=== PATIENT | male | born 1955 | race Caucasian/White ===

== ENCOUNTER 2016-08-16 14:01 | Emergency (ER) | payer BC ==
--- NOTE | 2016-08-16 14:31 | EDM.PDOC ---
ED HPI Trauma - General Chief Complaint: Lower Extremity Injury/Pain Stated Complaint: LEFT KNEE PAIN Time Seen by Provider: 08/16/16 14:23 - History of Present Illness INITIAL COMMENTS - FREE TEXT/NARRATIVE: HISTORY AND PHYSICAL: History of present illness: The patient is a 61-year-old male who has a long standing history with orthopedic clinic and Dr. Woods for having me effusions and needing arthrocentesis and presents with similar today. The patient says he was working and kneeled down on his knee and suddenly his knee had diffuse swelling similar to his other presentations. He did not fall and the leg and has no neurosensory changes and only has pain due to the swelling. He has no systemic complaints of fever chills nausea vomiting or abdominal pain And has no calf tenderness. Review of systems: As per history of present illness and below otherwise all systems reviewed and negative. Past medical history: As per history of present illness and as reviewed below otherwise noncontributory. Surgical history: As per history of present illness and as reviewed below otherwise noncontributory. Social history: No reported history of drug or alcohol abuse. Family history: As per history of present illness and as reviewed below otherwise noncontributory. Physical exam: General: Well-developed well-nourished male who is nontoxic and vital signs have been reviewed by me. HEENT: Atraumatic, normocephalic, negative for conjunctival pallor or scleral icterus, mucous membranes moist, throat clear, neck supple, nontender, trachea midline. Lungs: Clear to auscultation, breath sounds equal bilaterally, chest nontender. Heart: S1S2, regular rate and rhythm no overt murmurs Abdomen: Soft, nondistended, nontender. NABS Genitourinary: Deferred. Rectal: Deferred. Extremities: Atraumatic, no palpable bony defects are appreciated and patient has full range of motion of all extremities. At the left knee there is a large suprapatellar effusion which is ballotable and not warm and there is no evidence of any bony defects deformities or bony tenderness appreciated. The legs are negative for cords or calf pain. Neurovascular unremarkable. Neuro: Awake, alert, oriented. Cranial nerves II through XII unremarkable. Cerebellum unremarkable. Motor and sensory unremarkable throughout. Exam nonfocal. Diagnostics: [] Therapeutics: This case was discussed with Dr. Paula Woods at 1432. She is aware of this patient and has tapped this knee before and says that it's likely going to be a hemarthrosis. She does not want any of the fluid sent off for study does not want a x-ray performed prior to this. Patient and are comfortable with procedure. The patient again insists that he did not have any trauma to the area Procedure note: After the procedure was explained to the patient the area was prepped and draped in sterile fashion using Betadine and sterile drapes. 1% lidocaine with epinephrine was infused in the skin and the subcutaneous tissue at the lateral aspect of the suprapatellar area with approximately 2.5 cc. Using an 18-gauge needle the effusion was tapped and 40 cc of blood was extracted. There were no complications and the patient tolerated the procedure well. A pressure dressing was applied with gauze and Kee and the patient has his own crutches to go home with. I've advised him to not weight-bear and leave the pressure dressing on until this evening and apply ice as needed. Impression: Left knee hemarthrosis with history of same, history of arthritic knee improved Definitive disposition and diagnosis as appropriate pending reevaluation and review of above. Allergies/ADRs: Allergies No Known Allergies Allergy (Verified 08/16/16 14:09) Home Medications: Ambulatory Orders Calcium Carbonate [Calcium] 500 mg PO DAILY 12/21/13 [Confirmed 08/16/16] Glucosamine/D3/Boswellia Anna [Osteo Bi-Flex Caplet] 1 each PO DAILY 12/21/13 [ Confirmed 08/16/16] Multivitamin [Multi-Vitamin Daily] 1 each PO DAILY 12/21/13 [Confirmed 08/16/16] Omeprazole 20 mg PO DAILY 12/21/13 [Confirmed 08/16/16] atorvaSTATin [Lipitor] 20 mg PO BEDTIME 05/23/15 [Confirmed 08/16/16] Diltiazem [Cardizem CD] 120 mg PO DAILY #30 cap.cd 05/24/15 [Confirmed 08/16/16] Sotalol HCl [Sotalol] 240 mg PO BID 05/18/16 [Confirmed 08/16/16] Ubidecarenone [Co Q10] 100 mg PO DAILY 05/18/16 [Confirmed 08/16/16] Past Medical History HEENT History: Reports: Impaired vision Other HEENT History: glasses Cardiovascular History: Reports: Afib, High cholesterol Other Cardiovascular History: irregular heartbeat, palpitations Respiratory History: Reports: Asthma Gastrointestinal History: Reports: Hiatal hernia Other Gastrointestinal History: Pancreatitis in mid Genitourinary History: Reports: None Musculoskeletal History: Reports: None Neurological History: Reports: None Psychiatric History: Reports: None Endocrine/Metabolic History: Reports: None Hematologic History: Reports: None Oncologic (Cancer) History: Reports: None Dermatologic History: Reports: None - Infectious Disease History Infectious Disease History: Reports: Chicken pox - Past Surgical History Head Surgeries/Procedures: Reports: None GI Surgical History: Reports: Hernia repair/other Musculoskeletal Surgical History: Reports: Other (see below) Other Musculoskeletal Surgeries/Procedures:: left knee surgery Social & Family History - Family History Family Medical History: Noncontributory Cardiac: Reports: [place], Other (see below) Other Cardiac Family History: heat disease Endocrine/Metabolic: Reports: Diabetes, type II Oncologic: Reports: Ovarian - Tobacco Use Smoking Status *Q: Never Smoker Second Hand Smoke Exposure: No - Caffeine Use Caffeine Use: Reports: None - Alcohol Use Days Per Week of Alcohol Use: 1 Number of Drinks Per Day: 5 Total Drinks Per Week: 5 - Recreational Drug Use Recreational Drug Use: No Review of Systems - Review of Systems Review Of Systems: ROS reveals no pertinent complaints other than HPI. Trauma Exam - Physical Exam Exam: See Below (See dictation) Course - Vital Signs Last Recorded V/S: Last Vital Signs Temp 36.5 C 08/16/16 14:16 Pulse 63 08/16/16 14:16 Resp 18 08/16/16 14:16 BP 127/77 08/16/16 14:16 Pulse Ox 95 08/16/16 14:16 - Orders/Labs/Meds Meds: Medications Discontinued Medications Generic Name Dose Route Start Last Admin Trade Name Freq PRN Reason Stop Dose Admin Lidocaine/Epinephrine 20 ml 08/16/16 14:36 Xylocaine 1% With Epinephrine 1:100,000 INJECT 08/16/16 14:37 ONETIME ONE Departure - Departure Time of Disposition: 15:03 Disposition: Home, Self-Care 01 Condition: good Clinical Impression: Hemarthrosis involving knee joint Qualifiers: Laterality: left Qualified Code(s): M25.062 - Hemarthrosis, left knee Forms: ED Department Discharge Additional Instructions: The following information is given to patients seen in the emergency department who are being discharged to home. This information is to outline your options for follow-up care. We provide all patients seen in our emergency department with a follow-up referral. The need for follow-up, as well as the timing and circumstances, are variable depending upon the specifics of your emergency department visit. If you don't have a primary care physician on staff, we will provide you with a referral. We always advise you to contact your personal physician following an emergency department visit to inform them of the circumstance of the visit and for follow-up with them and/or the need for any referrals to a consulting specialist. The emergency department will also refer you to a specialist when appropriate. This referral assures that you have the opportunity for followup care with a specialist. All of these measure are taken in an effort to provide you with optimal care, which includes your followup. Under all circumstances we always encourage you to contact your private physician who remains a resource for coordinating your care. When calling for followup care, please make the office aware that this follow-up is from your recent emergency room visit. If for any reason you are refused follow-up, please contact the [facility] emergency department at and ask to speak to the emergency department charge nurse. [facility] Specialty Care--Orthopedic clinic Professional Building [address] [place] [id number] [facility] Primary care- Internal Medicine and Family [place] [id number] [place] [id number] Please leave KEE and dressing on until this evening and elevate and ice the area. Do not weight-bear until this evening. After you remove the Kee and dressing you can replace the Kee at any time that you need to be up and about for support. Please call and followup with Dr. Woods in the clinic as well as her primary care. Return to ER as needed and as discussed
[2016-08-16] MEDS ORDERED: Lidocaine 1% with EPINEPHrine 1:100,000 20 ML MDV INJECT ONE (14:36)
[2016-08-16 15:22] VITALS: BP 114/75
== END 2016-08-16 15:15 | disposition home or self-care (01) ==
LOC: MW.ED 14:01
DX: M25.062 Hemarthrosis, left knee (principal); E78.00 Pure hypercholesterolemia, unspecified; J45.909 Unspecified asthma, uncomplicated; Z98.890 Other specified postprocedural states; Z79.899 Other long term (current) drug therapy
CPT/HCPCS: 20610; 99282; 99283

== ENCOUNTER → 2016-08-20 | Outpatient (CLI) | payer BC ==
--- NOTE | 2016-08-20 16:15 | CR ---
EXAMINATION: Left knee HISTORY: Osteoarthritis COMPARISON: 05/28/2016 TECHNIQUE: 3 views FINDINGS/IMPRESSION: There is no acute osseous abnormality, dislocation, or fracture identified. The re is a small subchondral cyst within the medial tibial plateau. Bone mineralization otherwise appea rs normal. There is however a small suprapatellar joint effusion.
== END ==
LOC: MW.CHORTHO 13:18
PROVIDERS: ATTEND Orthopaedic Surgery
DX: M17.12 Unilateral primary osteoarthritis, left knee (principal); M25.562 Pain in left knee; M25.462 Effusion, left knee
CPT/HCPCS: 36415; 73562-26-LT; 73562-LT; 85025; 85610; 85730

== ENCOUNTER → 2016-08-23 | Outpatient (CLI) | payer BC | LOC: MW.CHORTHO 08:15 | PROVIDERS: ATTEND Orthopaedic Surgery | DX: M17.12 Unilateral primary osteoarthritis, left knee (principal) | CPT/HCPCS: 36415; 85240; 85245; 85300 ==

== ENCOUNTER 2016-11-16 19:36 | Emergency (ER) | payer BC ==
[2016-11-16] MEDS ORDERED: Acetaminophen 500 MG Tab PO ONE (20:32)
--- NOTE | 2016-11-16 21:25 | EDM.PDOC ---
ED HPI GENERAL MEDICAL PROBLEM - General Chief Complaint: Lower Extremity Injury/Pain Stated Complaint: UNK Time Seen by Provider: 11/16/16 20:30 Source of Information: Reports: Patient History Limitations: Reports: No Limitations - History of Present Illness INITIAL COMMENTS - FREE TEXT/NARRATIVE: HISTORY AND PHYSICAL: History of present illness: [Patient comes emergency room complaining of left knee pain and swelling. 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 He follows regularly with Dr. Paula Woods for aspiration. Was last aspirated in her clinic last week. Over the last couple of hours his knee has become more swollen and more painful. He states that it feels warm to touch but has not noticed any erythema. No fever or chills. No muscle or joint aches or pains. He is otherwise feeling well. He is on request for atrial fibrillation. He is scheduled for a ablation procedure on Friday, November 18.] Review of systems: As per history of present illness and below otherwise all systems reviewed and negative. Past medical history: As per history of present illness and as reviewed below otherwise noncontributory. Surgical history: As per history of present illness and as reviewed below otherwise noncontributory. Social history: No reported history of drug or alcohol abuse. Family history: As per history of present illness and as reviewed below otherwise noncontributory. Physical exam: HEENT: Atraumatic, normocephalic. Extremities: Left knee is swollen and tender w/ palpation. No erythema is appreciated. Negative for cords or calf pain. Neurovascular unremarkable. Impression: [Left knee hemarthrosis] Plan: [Consult to Dr. Paula Woods who sees patient in ER for evaluation. Disposition and discharge instructions per orthopedist recommendations. ] Definitive disposition and diagnosis as appropriate pending reevaluation and review of above. left knee Pain Score (Numeric/FACES): 10 - Related Data Allergies Allergy/AdvReac Type Severity Reaction Status Date / Time No Known Allergies Allergy Verified 11/16/16 20:04 Home Meds: Home Meds Calcium Carbonate [Calcium] 500 mg PO DAILY 12/21/13 [History] Glucosamine/D3/Boswellia Anna [Osteo Bi-Flex Caplet] 1 each PO DAILY 12/21/13 [ History] Multivitamin [Multi-Vitamin Daily] 1 each PO DAILY 12/21/13 [History] Omeprazole 20 mg PO DAILY 12/21/13 [History] atorvaSTATin [Lipitor] 20 mg PO BEDTIME 05/23/15 [History] Sotalol HCl [Sotalol] 240 mg PO BID 05/18/16 [History] Ubidecarenone [Co Q10] 100 mg PO DAILY 05/18/16 [History] Apixaban [Eliquis] 5 mg PO BID 11/16/16 [History] Past Medical History HEENT History: Reports: Impaired Vision Other HEENT History: glasses Cardiovascular History: Reports: Afib, High Cholesterol Other Cardiovascular History: irregular heartbeat, palpitations Respiratory History: Reports: Asthma Gastrointestinal History: Reports: Hiatal Hernia Other Gastrointestinal History: Pancreatitis in mid Genitourinary History: Reports: None Musculoskeletal History: Reports: None Neurological History: Reports: None Psychiatric History: Reports: None Endocrine/Metabolic History: Reports: None Hematologic History: Reports: None Oncologic (Cancer) History: Reports: None Dermatologic History: Reports: None - Infectious Disease History Infectious Disease History: Reports: Chicken Pox - Past Surgical History Head Surgeries/Procedures: Reports: None GI Surgical History: Reports: Hernia Repair/Other Musculoskeletal Surgical History: Reports: Other (See Below) Social & Family History - Family History Family Medical History: Noncontributory Cardiac: Reports: [place], Other (See Below) Other Cardiac Family History: heat disease Endocrine/Metabolic: Reports: Diabetes, type II Oncologic: Reports: Ovarian - Tobacco Use Smoking Status *Q: Never Smoker Second Hand Smoke Exposure: No - Caffeine Use Caffeine Use: Reports: None - Alcohol Use Days Per Week of Alcohol Use: 1 Number of Drinks Per Day: 5 Total Drinks Per Week: 5 - Recreational Drug Use Recreational Drug Use: No Review of Systems - Review of Systems Review Of Systems: ROS reveals no pertinent complaints other than HPI. ED EXAM, GENERAL - Physical Exam Exam: See Below Course - Vital Signs Last Recorded V/S: Last Vital Signs Temp Pulse 56 L 11/16/16 21:15 Resp 16 11/16/16 21:15 BP 119/82 11/16/16 21:15 Pulse Ox 96 11/16/16 21:15 - Orders/Labs/Meds Meds: Medications Discontinued Medications Generic Name Dose Route Start Last Admin Trade Name Freq PRN Reason Stop Dose Admin Acetaminophen 1,000 mg 11/16/16 20:32 11/16/16 20:39 Tylenol Extra Strength PO 11/16/16 20:33 1,000 mg ONETIME ONE Administration Departure - Departure Time of Disposition: 21:30 Disposition: Home, Self-Care 01 Condition: Good Clinical Impression: Hemarthrosis involving knee joint - Discharge Information Instructions: Knee Pain, [id number] Referrals: Rony Woods MD [Primary Care Provider] - Forms: ED Department Discharge Additional Instructions: The following information is given to patients seen in the emergency department who are being discharged to home. This information is to outline your options for follow-up care. We provide all patients seen in our emergency department with a follow-up referral. The need for follow-up, as well as the timing and circumstances, are variable depending upon the specifics of your emergency department visit. If you don't have a primary care physician on staff, we will provide you with a referral. We always advise you to contact your personal physician following an emergency department visit to inform them of the circumstance of the visit and for follow-up with them and/or the need for any referrals to a consulting specialist. The emergency department will also refer you to a specialist when appropriate. This referral assures that you have the opportunity for follow-up care with a specialist. All of these measure are taken in an effort to provide you with optimal care, which includes your follow-up. Under all circumstances we always encourage you to contact your private physician who remains a resource for coordinating your care. When calling for follow-up care, please make the office aware that this follow-up is from your recent emergency room visit. If for any reason you are refused follow-up, please contact the [facility] emergency department at and asked to speak to the emergency department charge nurse. [facility] Specialty care-Orthopedic Clinic Professional Building [address] [place] [address], [address] [place] [address] Discharge instructions per orthopedist.
--- NOTE | 2016-11-16 21:44 | PCM.CONS ---
H&P History of Present Illness - General Date of Service: 11/16/16 Source of Information: Patient, Family History Limitations: Reports: No Limitations - History of Present Illness Initial Comments - Free Text/Narative: 61 y/o male with h/o recurrent left knee hemarthrosis. One week ago noticed increased swelling. Was able to tolerate pain and swelling while using one crutch for assistance with ambulation. Today began having increased swelling. No injury or new activity. Currently on Eloquis for a heart condition and is scheduled for heart ablation in [place] on Friday. Pain has persisted, so presented to ER. Extensive w/u in past as documented in clinical record. No evidence of bleeding diathesis. Known DJD in knee. Denies paralysis, paresthesias. Improves with: Reports: Immobilization Worsens with: Reports: Movement Context: Denies: Activity/Exercise, Trauma Associated Symptoms: Reports: No Other Symptoms. Denies: Fever/Chills, Nausea/ Vomiting, Shortness of Breath left knee Pain Score (Numeric/FACES): 10 - Related Data Allergies/Adverse Reactions: Allergies Allergy/AdvReac Type Severity Reaction Status Date / Time No Known Allergies Allergy Verified 11/16/16 20:04 Home Medications: Home Meds Calcium Carbonate [Calcium] 500 mg PO DAILY 12/21/13 [History] Glucosamine/D3/Boswellia Anna [Osteo Bi-Flex Caplet] 1 each PO DAILY 12/21/13 [ History] Multivitamin [Multi-Vitamin Daily] 1 each PO DAILY 12/21/13 [History] Omeprazole 20 mg PO DAILY 12/21/13 [History] atorvaSTATin [Lipitor] 20 mg PO BEDTIME 05/23/15 [History] Sotalol HCl [Sotalol] 240 mg PO BID 05/18/16 [History] Ubidecarenone [Co Q10] 100 mg PO DAILY 05/18/16 [History] Apixaban [Eliquis] 5 mg PO BID 11/16/16 [History] Past Medical History HEENT History: Reports: Impaired Vision Other HEENT History: glasses Cardiovascular History: Reports: Afib, High Cholesterol Other Cardiovascular History: irregular heartbeat, palpitations Respiratory History: Reports: Asthma Gastrointestinal History: Reports: Hiatal Hernia Other Gastrointestinal History: Pancreatitis in mid Genitourinary History: Reports: None Musculoskeletal History: Reports: None Neurological History: Reports: None Psychiatric History: Reports: None Endocrine/Metabolic History: Reports: None Hematologic History: Reports: None Oncologic (Cancer) History: Reports: None Dermatologic History: Reports: None - Infectious Disease History Infectious Disease History: Reports: Chicken Pox - Past Surgical History Head Surgeries/Procedures: Reports: None GI Surgical History: Reports: Hernia Repair/Other Musculoskeletal Surgical History: Reports: Other (See Below) Social & Family History - Family History Family Medical History: Noncontributory Cardiac: Reports: [place], Other (See Below) Other Cardiac Family History: heat disease Endocrine/Metabolic: Reports: Diabetes, type II Oncologic: Reports: Ovarian - Tobacco Use Smoking Status *Q: Never Smoker Second Hand Smoke Exposure: No - Caffeine Use Caffeine Use: Reports: None - Alcohol Use Days Per Week of Alcohol Use: 1 Number of Drinks Per Day: 5 Total Drinks Per Week: 5 - Recreational Drug Use Recreational Drug Use: No H&P Review of Systems - Review of Systems: Review Of Systems: See Below General: Reports: No Symptoms. Denies: Fever, Chills HEENT: Reports: No Symptoms Pulmonary: Reports: No Symptoms Cardiovascular: Reports: No Symptoms Gastrointestinal: Reports: No Symptoms Genitourinary: Reports: No Symptoms Musculoskeletal: Reports: Joint Pain Neurological: Reports: No Symptoms Hematologic/Lymphatic: Reports: No Symptoms Immunologic: Reports: No Symptoms Exam - Exam Exam: See Below - Vital Signs Vital Signs: Last Vital Signs Temp Pulse 61 11/16/16 20:07 Resp 20 11/16/16 20:07 BP 162/101 H 11/16/16 20:07 Pulse Ox 97 11/16/16 20:07 Weight: 77.111 kg - Exam General: Alert, Oriented, 4 HEENT: Conjunctiva Clear, Hearing Intact, Nares Patent, Pupils Equal Neck: Supple, Trachea Midline, 2 Lungs: Normal Respiratory Effort Cardiovascular: Irregular Rhythm Abdomen: Soft (Male) Exam: Deferred Neuro Extensive - Mental Status: Alert, Oriented x3, Normal Mood/Affect, Normal Cognition Psychiatric: Alert, Normal Affect, Normal Mood Physical Exam Comments:: Exam of LLE shows obvious left knee effusion. No erythema or ecchymosis noted. No pain with hip ROM. Pain with any type of knee motion. No calf TTP. AT/EHL/ gastroc 5/5. Sensation intact. DP 2+. Consult PN Assessment/Plan Procedures: Procedures ANTITHROMBIN III ACTIVITY (08/23/16) ASSAY OF BLOOD/URIC ACID (05/18/16) ASSAY OF CK (CPK) (06/14/15) ASSAY OF MAGNESIUM (06/14/15) ASSAY OF TROPONIN QUANT (06/14/15) C-REACTIVE PROTEIN (05/18/16) CHEST X-RAY 1 VIEW FRONTAL (06/14/15) CLOT FACTOR VIII AHG 1 STAGE (08/23/16) CLOT FACTOR VIII VW RISTOCTN (08/23/16) COMPLETE CBC W/AUTO DIFF WBC (08/20/16) COMPREHEN METABOLIC PANEL (06/14/15) CREATINE MB FRACTION (06/14/15) DRAIN/INJ JOINT/BURSA W/O US (08/16/16) ELECTROCARDIOGRAM TRACING (06/26/15) EMERGENCY DEPT VISIT (08/16/16) EMERGENCY DEPT VISIT (06/14/15) EMERGENCY DEPT VISIT (12/21/13) EXTREMITY STUDY (12/30/13) HT MUSCLE IMAGE SPECT MULT (05/16/15) HYDRATE IV INFUSION ADD-ON (06/14/15) LIPID PANEL (05/23/15) METABOLIC PANEL TOTAL CA (05/23/15) PROTHROMBIN TIME (08/20/16) RBC SED RATE AUTOMATED (05/18/16) ROUTINE VENIPUNCTURE (08/20/16) THER/PROPH/DIAG INJ IV PUSH (06/14/15) THER/PROPH/DIAG INJ SC/IM (06/14/15) THROMBOPLASTIN TIME PARTIAL (08/20/16) TTE W/DOPPLER COMPLETE (05/23/15) TX/PRO/DX INJ NEW DRUG ADDON (06/14/15) TX/PRO/DX INJ SAME DRUG RECORD PRESSMAN (05/23/15) URINALYSIS AUTO W/SCOPE (06/14/15) X-RAY EXAM KNEE 4 OR MORE (05/28/16) X-RAY EXAM OF FINGER(S) (11/06/15) X-RAY EXAM OF KNEE 3 (08/20/16) (1) Hemarthrosis of left knee SNOMED Code(s): 463286710 Code(s): M25.062 - HEMARTHROSIS, LEFT KNEE Current Visit: No Problem List Initiated/Reviewed/Updated: Yes Plan: Due to the increased pain, I recommended aspiration of the left knee. He has had this in the past and is familiar with the procedure. With him being on Eloquis, there is a potential for recurrence of the hemarthrosis and he is aware of this. Risks of procedure discussed which include, but are not limited to, infection, recurrance, continued pain. Patient agrees to proceed. Verbal consent was obtained. Using sterile technique, an 18G needle was used to aspirate ~80ml of bloody fluid from the left knee joint via a supralateral retropatellar approach. Patient tolerated the procedure well. Improvement in pain was noted at completion of procedure. A compression dressing was then applied. Patient will be discharged home with [place] 5/325. He is instructed to f/u in ortho clinic once his cardiovascular work up is complete. Ice packs prn. Family and patient verbalize understanding.
[2016-11-16 22:14] VITALS: BP 119/82
== END 2016-11-16 21:15 | disposition home or self-care (01) ==
LOC: MW.ED 19:36
DX: M25.062 Hemarthrosis, left knee (principal); I48.91 Unspecified atrial fibrillation; E78.00 Pure hypercholesterolemia, unspecified; J45.909 Unspecified asthma, uncomplicated; Z79.899 Other long term (current) drug therapy
CPT/HCPCS: 99283; A9270

== ENCOUNTER 2017-09-04 08:09 | Emergency (ER) | payer BC ==
--- NOTE | 2017-09-04 09:01 | EDM.PDOC ---
ED HPI GENERAL MEDICAL PROBLEM - General Chief Complaint: Lower Extremity Injury/Pain Stated Complaint: RT LEG HURTS Time Seen by Provider: 09/04/17 08:51 - History of Present Illness INITIAL COMMENTS - FREE TEXT/NARRATIVE: HISTORY AND PHYSICAL: History of present illness: Patient 62-year-old white male with history of cardiac ablation and presents with Starbright calf pain he denies any injury is concerned about ruling out deep venous thrombosis he has no history of DVT or PE he denies any other concern is no fever chills nausea vomiting or other complaints and otherwise he has been in his usual state of health Review of systems: As per history of present illness and below otherwise all systems reviewed and negative. Past medical history: As per history of present illness and as reviewed below otherwise noncontributory. Surgical history: As per history of present illness and as reviewed below otherwise noncontributory. Social history: No reported history of drug or alcohol abuse. Family history: As per history of present illness and as reviewed below otherwise noncontributory. Physical exam: HEENT: Atraumatic, normocephalic, pupils reactive, negative for conjunctival pallor or scleral icterus, mucous membranes moist, throat clear, neck supple, nontender, trachea midline. Lungs: Clear to auscultation, breath sounds equal bilaterally, chest nontender. Heart: S1S2, regular, negative for clicks, rubs, or JVD. Abdomen: Soft, nondistended, nontender. Negative for masses or hepatosplenomegaly. Negative for costovertebral tenderness. Pelvis: Stable nontender. Genitourinary: Deferred. Rectal: Deferred. Extremities: Atraumatic, negative for cords tenderness to palpation of his right calf. Neurovascular unremarkable. Neuro: Awake, alert, oriented. Cranial nerves II through XII unremarkable. Cerebellum unremarkable. Motor and sensory unremarkable throughout. Exam nonfocal. Diagnostics: Venous Doppler right lower extremity Therapeutics: None Impression: #1 right calf pain rule out DVT Definitive disposition and diagnosis as appropriate pending reevaluation and review of above. right calf Pain Score (Numeric/FACES): 6 - Related Data Allergies Allergy/AdvReac Type Severity Reaction Status Date / Time No Known Allergies Allergy Verified 09/04/17 08:15 Home Meds: Home Meds Apixaban [Eliquis] 5 mg PO BID 09/04/17 [History] Calcium Carbonate/Vitamin D3 [Calcium 600 + Vit D 200] 1 each PO DAILY 09/04/17 [History] Gluc HCl/Csa/Raymond Hy/Hyalur Ac [Glucosamine Chondroitin] 2 tab PO DAILY [History] Multivitamins [Tab-A-Alberto] 1 each PO DAILY 09/04/17 [History] Omeprazole 20 mg PO DAILY 09/04/17 [History] Sotalol [Betapace] 120 mg PO BID 09/04/17 [History] Ubidecarenone [Co Q-10] 100 mg PO DAILY 09/04/17 [History] atorvaSTATin Calcium [Atorvastatin Calcium] 20 mg PO DAILY 09/04/17 [History] Past Medical History HEENT History: Reports: Impaired Vision Other HEENT History: glasses Cardiovascular History: Reports: Afib, High Cholesterol Other Cardiovascular History: irregular heartbeat, palpitations Respiratory History: Reports: Asthma Gastrointestinal History: Reports: Hiatal Hernia, Jaundice Other Gastrointestinal History: Pancreatitis in mid 90s Genitourinary History: Reports: None Musculoskeletal History: Reports: None Neurological History: Reports: None Psychiatric History: Reports: None Endocrine/Metabolic History: Reports: None Hematologic History: Reports: None Oncologic (Cancer) History: Reports: None Dermatologic History: Reports: None - Infectious Disease History Infectious Disease History: Reports: Chicken Pox, Influenza - Past Surgical History Head Surgeries/Procedures: Reports: None Cardiovascular Surgical History: Reports: Cardiac Ablation GI Surgical History: Reports: Hernia Repair/Other Musculoskeletal Surgical History: Reports: Knee Replacement Social & Family History - Family History Family Medical History: Noncontributory Cardiac: Reports: [place], Other (See Below) Other Cardiac Family History: heat disease Endocrine/Metabolic: Reports: Diabetes, type II Oncologic: Reports: Ovarian - Tobacco Use Smoking Status *Q: Never Smoker Second Hand Smoke Exposure: No - Caffeine Use Caffeine Use: Reports: None - Alcohol Use Days Per Week of Alcohol Use: 2 Number of Drinks Per Day: 1 Total Drinks Per Week: 2 - Recreational Drug Use Recreational Drug Use: No Review of Systems - Review of Systems Review Of Systems: ROS reveals no pertinent complaints other than HPI. ED EXAM, GENERAL - Physical Exam Exam: See Below (See dictation) Course - Vital Signs Last Recorded V/S: Last Vital Signs Temp 35.7 C 09/04/17 08:15 Pulse 64 04/12/18 08:15 Resp 18 09/04/17 08:15 BP 144/101 H 09/04/17 08:15 Pulse Ox 97 09/04/17 08:15 Departure - Departure Time of Disposition: 09:46 Disposition: Home, Self-Care 01 Condition: Good Clinical Impression: Leg pain - Discharge Information Referrals: Ochoa Newberry MD [Primary Care Provider] - Forms: ED Department Discharge Additional Instructions: The following information is given to patients seen in the emergency department who are being discharged to home. This information is to outline your options for follow-up care. We provide all patients seen in our emergency department with a follow-up referral. The need for follow-up, as well as the timing and circumstances, are variable depending upon the specifics of your emergency department visit. If you don't have a primary care physician on staff, we will provide you with a referral. We always advise you to contact your personal physician following an emergency department visit to inform them of the circumstance of the visit and for follow-up with them and/or the need for any referrals to a consulting specialist. The emergency department will also refer you to a specialist when appropriate. This referral assures that you have the opportunity for followup care with a specialist. All of these measure are taken in an effort to provide you with optimal care, which includes your followup. Under all circumstances we always encourage you to contact your private physician who remains a resource for coordinating your care. When calling for followup care, please make the office aware that this follow-up is from your recent emergency room visit. If for any reason you are refused follow-up, please contact the [facility] emergency department at and asked to speak to the emergency department charge nurse. Follow-up primary medical doctor return as needed as discussed
--- NOTE | 2017-09-04 09:15 | US ---
ULTRASOUND EXAMINATION OF the right lower extremity WITH DOPPLER HISTORY: Pain FINDINGS: Examination of the right leg was performed from the groin to the calf region. All visualized segment s including common femoral, proximal greater saphenous, superficial femoral, popliteal and calf veins appear patent with good compressibility and augmentation. There is no evidence of deep vein thrombo sis. IMPRESSION: No evidence of a DVT.
[2017-09-04 12:04] VITALS: BP 139/93
== END 2017-09-04 10:00 | disposition home or self-care (01) ==
LOC: MW.ED 08:09
DX: M79.661 Pain in right lower leg (principal); E78.00 Pure hypercholesterolemia, unspecified; Z79.899 Other long term (current) drug therapy
CPT/HCPCS: 93971-26-RT; 93971-RT; 99283; 99283-25

== ENCOUNTER 2018-06-04 14:45 | Emergency (ER) | payer BC ==
--- NOTE | 2018-06-04 15:16 | EDM.PDOC ---
ED HPI GENERAL MEDICAL PROBLEM - General Chief Complaint: Lower Extremity Injury/Pain Stated Complaint: LEFT ANKLE INJURED Time Seen by Provider: 06/04/18 14:47 Source of Information: Reports: Patient History Limitations: Reports: No Limitations - History of Present Illness INITIAL COMMENTS - FREE TEXT/NARRATIVE: History of present illness: []Patient started developing left foot pain one week ago today the pain radiated from his dorsal midfoot to his anterior ankle joint. He states his foot and ankle hurts when he walks this occurred shortly after he was "dry needled" for calf pain after knee replacement surgery. He denies any fevers, chills or trauma. He states he does have a history of gout and is currently taking allopurinol. Review of systems: As per history of present illness and below otherwise all systems reviewed and negative. Past medical history: As per history of present illness and as reviewed below otherwise noncontributory. Surgical history: As per history of present illness and as reviewed below otherwise noncontributory. Social history: No reported history of drug or alcohol abuse. Family history: As per history of present illness and as reviewed below otherwise noncontributory. Physical exam: General: Well developed, well nourished in NAD HEENT: Atraumatic, normocephalic, pupils reactive, negative for conjunctival pallor or scleral icterus, mucous membranes moist, throat clear, neck supple, nontender, trachea midline. Lungs: Clear to auscultation, breath sounds equal bilaterally, chest nontender. Heart: S1S2, regular, negative for clicks, rubs, or JVD. Abdomen: NABS, Soft, nondistended, nontender. Negative for masses or hepatosplenomegaly. Negative for costovertebral tenderness. Pelvis: Stable nontender. Genitourinary: Deferred. Rectal: Deferred. Extremities: Atraumatic, nontender to palpation of the dorsal left foot extending to the anterior ankle there is no erythema, edema or lesions noted on the skin. negative for cords or calf pain. He has full range of motion and sensation is intact. Neurovascular unremarkable. Neuro: Awake, alert, oriented. Cranial nerves II through XII unremarkable. Cerebellum unremarkable. Motor and sensory unremarkable throughout. Exam nonfocal. Skin:warm and dry Diagnostics: X-rays of foot, ankle, CBC and uric acid all negative Therapeutics: Declined pain meds ED Course: Remarkable Impression: Dorsal foot pain left Prescriptions: Declined medication medications Plan: folLow up with podiatry Definitive disposition and diagnosis as appropriate pending reevaluation and review of above. Left Ankle Pain Score (Numeric/FACES): 5 - Related Data Allergies Allergy/AdvReac Type Severity Reaction Status Date / Time No Known Allergies Allergy Verified 06/04/18 15:03 Home Meds: Home Meds Calcium Carbonate/Vitamin D3 [Calcium 600 + Vit D 200] 1 each PO DAILY 09/04/17 [History] Gluc HCl/Csa/Raymond Hy/Hyalur Ac [Glucosamine Chondroitin] 2 tab PO DAILY [History] Multivitamins [Tab-A-Alberto] 1 each PO DAILY 09/04/17 [History] Omeprazole 20 mg PO DAILY 09/04/17 [History] Ubidecarenone [Co Q-10] 100 mg PO DAILY 09/04/17 [History] atorvaSTATin Calcium [Atorvastatin Calcium] 20 mg PO DAILY 09/04/17 [History] Aspirin [Adult Aspirin] 81 mg PO DAILY 12/11/17 [History] Allopurinol [Zyloprim] 300 mg PO DAILY #90 tablet 12/13/17 [Rx] DULoxetine HCl [Cymbalta] 60 mg PO DAILY 06/04/18 [History] Past Medical History HEENT History: Reports: Impaired Vision Other HEENT History: glasses Cardiovascular History: Reports: Afib, High Cholesterol Other Cardiovascular History: irregular heartbeat, palpitations Respiratory History: Reports: Asthma Gastrointestinal History: Reports: GERD, Hiatal Hernia, Jaundice Other Gastrointestinal History: Pancreatitis in mid Genitourinary History: Reports: None Musculoskeletal History: Reports: None Neurological History: Reports: None Psychiatric History: Reports: None Endocrine/Metabolic History: Reports: None Hematologic History: Reports: None Immunologic History: Reports: None Oncologic (Cancer) History: Reports: None Dermatologic History: Reports: None - Infectious Disease History Infectious Disease History: Reports: Chicken Pox, Influenza - Past Surgical History Head Surgeries/Procedures: Reports: None Cardiovascular Surgical History: Reports: Cardiac Ablation GI Surgical History: Reports: Hernia Repair/Other Musculoskeletal Surgical History: Reports: Knee Replacement Social & Family History - Family History Family Medical History: Noncontributory Cardiac: Reports: [place], Other (See Below) Other Cardiac Family History: heat disease Endocrine/Metabolic: Reports: Diabetes, type II Oncologic: Reports: Ovarian - Tobacco Use Smoking Status *Q: Never Smoker - Caffeine Use Caffeine Use: Reports: Coffee, Soda Caffeine Use Comment: rarely - Recreational Drug Use Recreational Drug Use: No Review of Systems - Review of Systems Review Of Systems: ROS reveals no pertinent complaints other than HPI. ED EXAM, GENERAL - Physical Exam Exam: See Below (See history of present illness) Course - Vital Signs Last Recorded V/S: Last Vital Signs Temp 96.7 F 06/04/18 15:00 Pulse 85 06/04/18 15:00 Resp 18 06/04/18 15:00 BP 142/101 H 06/04/18 15:00 Pulse Ox 95 06/04/18 15:00 - Orders/Labs/Meds Orders: Active Orders 24 hr Category Date Time Status Ankle Min 3V Lt [CR] Stat Exams 06/04/18 14:51 Taken Foot 2V Lt [CR] Stat Exams 06/04/18 15:15 Ordered Labs: Laboratory Tests 06/04/18 06/04/18 Range/Units 15:27 15:27 WBC 6.09 (4.0-11.0) K/uL RBC 4.96 (4.50-5.90) M/uL Hgb 14.9 (13.0-17.0) g/dL Hct 43.7 (38.0-50.0) % MCV 88.1 (80.0-98.0) fL MCH 30.0 (27.0-32.0) pg MCHC 34.1 (31.0-37.0) g/dL RDW Std Deviation 46.1 (28.0-62.0) fl RDW Coeff of Joy 14 (11.0-15.0) % Plt Count 325 (150-400) K/uL MPV 10.00 (7.40-12.00) fL Neut % (Auto) 61.7 (48.0-80.0) % Lymph % (Auto) 23.6 (16.0-40.0) % Putnam % (Auto) 9.9 (0.0-15.0) % Eos % (Auto) 4.1 (0.0-7.0) % Baso % (Auto) 0.7 (0.0-1.5) % Neut # (Auto) 3.8 (1.4-5.7) K/uL Lymph # (Auto) 1.4 (0.6-2.4) K/uL Putnam # (Auto) 0.6 (0.0-0.8) K/uL Eos # (Auto) 0.3 (0.0-0.7) K/uL Baso # (Auto) 0.0 (0.0-0.1) K/uL Nucleated RBC % 0.0 /100WBC Nucleated RBCs # 0 K/uL Uric Acid 3.8 (2.6-7.2) mg/dL Departure - Departure Time of Disposition: 16:13 Disposition: Home, Self-Care 01 Condition: Good Clinical Impression: Left foot pain - Discharge Information *PRESCRIPTION DRUG MONITORING PROGRAM REVIEWED*: No *COPY OF PRESCRIPTION DRUG MONITORING REPORT IN PATIENT GILBERT: No Referrals: PCP,None [Primary Care Provider] - Forms: ED Department Discharge Additional Instructions: The following information is given to patients seen in the emergency department who are being discharged to home. This information is to outline your options for follow-up care. We provide all patients seen in our emergency department with a follow-up referral. The need for follow-up, as well as the timing and circumstances, are variable depending upon the specifics of your emergency department visit. If you don't have a primary care physician on staff, we will provide you with a referral. We always advise you to contact your personal physician following an emergency department visit to inform them of the circumstance of the visit and for follow-up with them and/or the need for any referrals to a consulting specialist. The emergency department will also refer you to a specialist when appropriate. This referral assures that you have the opportunity for follow-up care with a specialist. All of these measure are taken in an effort to provide you with optimal care, which includes your follow-up. Under all circumstances we always encourage you to contact your private physician who remains a resource for coordinating your care. When calling for follow-up care, please make the office aware that this follow-up is from your recent emergency room visit. If for any reason you are refused follow-up, please contact the [facility] Emergency Department at and asked to speak to the emergency department charge nurse. [facility] [address] [place] [id number] Follow up with podiatry [facility] Dr Sawyer, DPM Podiatry [address] [place] [address] - My Orders Last 24 Hours: My Active Orders 06/04/18 14:51 Ankle Min 3V Lt [CR] Stat 06/04/18 15:15 Foot 2V Lt [CR] Stat - Assessment/Plan Last 24 Hours: My Active Orders 06/04/18 14:51 Ankle Min 3V Lt [CR] Stat 06/04/18 15:15 Foot 2V Lt [CR] Stat
--- NOTE | 2018-06-04 17:35 | CR ---
EXAMINATION: Left ankle and left foot HISTORY: Pain COMPARISON: 09/06/2011 TECHNIQUE: 3 views of the left ankle and 3 views of the left foot FINDINGS/IMPRESSION: There is no acute osseous abnormality, dislocation, or fracture. Bone mineralization, ankle mortise and joint spaces are preserved. Moderate tibiotalar joint effusion. Mild joint space narrowing at the second distal interphalangeal joint.
[2018-06-04 18:06] VITALS: BP 125/91
== END 2018-06-04 18:07 | disposition home or self-care (01) ==
LOC: MW.ED 14:45
DX: M79.672 Pain in left foot (principal); M10.9 Gout, unspecified; I48.91 Unspecified atrial fibrillation; Z79.82 Long term (current) use of aspirin; Z79.899 Other long term (current) drug therapy; Z96.653 Presence of artificial knee joint, bilateral
CPT/HCPCS: 36415; 73610-26-LT; 73610-LT; 73620-26-LT; 73620-LT; 84550; 85025; 99283

== ENCOUNTER 2019-08-03 19:52 | Emergency (ER) | payer BC ==
[2019-08-03] MEDS ORDERED: Sodium Chloride 0.9% 2.5 ML Syringe FLUSH PRN (20:22)
[2019-08-03] MEDS ORDERED: Sodium Chloride 0.9% 10 ML Syringe FLUSH PRN (20:22)
--- NOTE | 2019-08-03 20:33 | EDM.PDOC ---
ED HPI GENERAL MEDICAL PROBLEM - General Chief Complaint: Cardiovascular Problem Stated Complaint: TIGHTNESS IN CHEST Time Seen by Provider: 08/03/19 20:22 Source of Information: Reports: Patient, Family History Limitations: Reports: No Limitations - History of Present Illness INITIAL COMMENTS - FREE TEXT/NARRATIVE: 64-year-old male past medical history of atrial fibrillation ablated about 3 years ago with no complications since presenting with a 10-hour history of palpitations. Patient reports palpitations on and off throughout the day regimen rather consistent. He says he has some of the symptoms he had during his atrial fibrillation events which include an odd sensation in the chest as well as some sense of fatigue. Patient denies any arm or jaw pain. No history of DVT or PE. Patient denies any weakness, numbness, vision changes. Patient does endorse a mild headache. No change in bowel or bladder habits. No new joint symptoms no confusion. Patient denies any significant weight gain or weight loss. Onset: Today chest area Pain Score (Numeric/FACES): 6 - Related Data Allergies Allergy/AdvReac Type Severity Reaction Status Date / Time No Known Allergies Allergy Verified 08/03/19 19:56 Home Meds: Home Meds Calcium Carbonate/Vitamin D3 [Calcium 600 + Vit D 200] 1 each PO DAILY 09/04/17 [History] Glucosam/Chond/Collagen/Hyalur [Glucosamine Chondroitin] 2 tab PO DAILY [History] Multivitamins [Tab-A-Alberto] 1 each PO DAILY 09/04/17 [History] Omeprazole 20 mg PO DAILY 09/04/17 [History] atorvaSTATin Calcium [Atorvastatin Calcium] 20 mg PO DAILY 09/04/17 [History] allopurinoL [Zyloprim] 300 mg PO DAILY #90 tablet 12/13/17 [Rx] Magnesium 250 mg PO DAILY 08/03/19 [History] Past Medical History HEENT History: Reports: Impaired Vision Other HEENT History: glasses Cardiovascular History: Reports: Afib, High Cholesterol Other Cardiovascular History: irregular heartbeat, palpitations Respiratory History: Reports: Asthma Gastrointestinal History: Reports: GERD, Hiatal Hernia, Jaundice Other Gastrointestinal History: Pancreatitis in mid 89 Genitourinary History: Reports: None Musculoskeletal History: Reports: None Neurological History: Reports: None Psychiatric History: Reports: None Endocrine/Metabolic History: Reports: None Insulin Pump Model and Electron Beam Photo Mask Maker: N/A Hematologic History: Reports: None Immunologic History: Reports: None Oncologic (Cancer) History: Reports: None Dermatologic History: Reports: None - Infectious Disease History Infectious Disease History: Reports: None - Past Surgical History Head Surgeries/Procedures: Reports: None Cardiovascular Surgical History: Reports: Cardiac Ablation GI Surgical History: Reports: Hernia Repair/Other Musculoskeletal Surgical History: Reports: Knee Replacement Social & Family History - Family History Family Medical History: Noncontributory Cardiac: Reports: [place], Other (See Below) Other Cardiac Family History: heat disease Endocrine/Metabolic: Reports: Diabetes, type II Oncologic: Reports: Ovarian - Tobacco Use Smoking Status *Q: Never Smoker - Caffeine Use Caffeine Use: Reports: Soda Caffeine Use Comment: rarely - Recreational Drug Use Recreational Drug Use: No ED ROS GENERAL - Review of Systems Review Of Systems: Comprehensive ROS is negative, except as noted in HPI. ED EXAM, GENERAL - Physical Exam Exam: See Below Free Text/Narrative:: General: No acute distress. Comfortable. Heent: Examination revealed no pallor, no icterus, no lymphadenopathy. The patient has normal posterior pharynx, moist mucous membranes. Neck: Supple. No JVD. No rigidity. Heart: Normal rate. Reg rhythm. No murmurs appreciated. Lungs: Bilaterally clear to auscultation. No focal findings. Abdomen: Nontender, non-distended, soft, no CVA tenderness. Neuro: Pt is moving all four extremities. EOMI. PERRL. Normal speech. Skin: Exposed areas appeared normally perfused, warm, normal color with no meaningful rashes or lesions. Extremities: Peripheral examination revealed no pedal edema. Peripheral pulses were 2+. EKG INTERPRETATION EKG Interpretation Comments: EKG time 7:59 PM. Sinus rhythm at 87 bpm. Normal axis. Normal intervals. Occasional PAC. No ST elevation or depression. Q waves aVR and aVL.. Course - Vital Signs Last Recorded V/S: Last Vital Signs Temp 36.4 C 08/03/19 19:55 Pulse 102 H 08/03/19 19:55 Resp 18 08/03/19 19:55 BP 130/90 08/03/19 19:55 Pulse Ox 93 L 08/03/19 19:55 - Orders/Labs/Meds Orders: Active Orders 24 hr Category Date Time Status EKG Documentation Completion [RC] STAT Care 08/03/19 20:26 Active Sodium Chloride 0.9% [Saline Flush] Med 08/03/19 20:22 Active 10 ml FLUSH ASDIRECTED PRN Sodium Chloride 0.9% [Saline Flush] Med 08/03/19 20:22 Active 2.5 ml FLUSH ASDIRECTED PRN Saline Lock Insert [OM.PC] Stat Oth 08/03/19 20:22 Ordered Medication Orders Sodium Chloride (Saline Flush) 10 ml FLUSH ASDIRECTED PRN PRN Reason: Keep Vein Open Sodium Chloride (Saline Flush) 2.5 ml FLUSH ASDIRECTED PRN PRN Reason: Keep Vein Open Labs: Laboratory Tests 08/03/19 08/03/19 08/03/19 Range/Units 20:00 20:00 20:00 WBC 5.33 (4.0-11.0) K/uL RBC 5.26 (4.50-5.90) M/uL Hgb 15.9 (13.0-17.0) g/dL Hct 47.5 (38.0-50.0) % MCV 90.3 (80.0-98.0) fL MCH 30.2 (27.0-32.0) pg MCHC 33.5 (31.0-37.0) g/dL RDW Std Deviation 47.5 (28.0-62.0) fl RDW Coeff of Joy 14 (11.0-15.0) % Plt Count 257 (150-400) K/uL MPV 9.90 (7.40-12.00) fL Neut % (Auto) 72.0 (48.0-80.0) % Lymph % (Auto) 17.1 (16.0-40.0) % [place] % (Auto) 9.0 (0.0-15.0) % Eos % (Auto) 1.7 (0.0-7.0) % Baso % (Auto) 0.2 (0.0-1.5) % Neut # (Auto) 3.8 (1.4-5.7) K/uL Lymph # (Auto) 0.9 (0.6-2.4) K/uL [place] # (Auto) 0.5 (0.0-0.8) K/uL Eos # (Auto) 0.1 (0.0-0.7) K/uL Baso # (Auto) 0.0 (0.0-0.1) K/uL Nucleated RBC % 0.0 /100WBC Nucleated RBCs # 0 K/uL Sodium 142 (136-148) mmol/L Potassium 3.9 (3.5-5.1) mmol/L Chloride 106 (98-107) mmol/L Carbon Dioxide 24.9 (21.0-32.0) mmol/L BUN 14 (7.0-18.0) mg/dL Creatinine 0.8 (0.8-1.3) mg/dL Est Cr Clr Drug Dosing TNP Estimated GFR (MDRD) > 60.0 ml/min Glucose 98 (74-106) mg/dL Calcium 8.5 (8.5-10.1) mg/dL Phosphorus (2.6-4.7) mg/dL Magnesium (1.8-2.4) mg/dL Total Bilirubin 0.7 (0.2-1.0) mg/dL AST 16 (15-37) IU/L ALT 33 (14-63) IU/L Alkaline Phosphatase 71 (46-116) U/L Troponin I < 0.050 (0.000-0.056) ng/mL B-Natriuretic Peptide 12 (<100) PG/ML Total Protein 7.0 (6.4-8.2) g/dL Albumin 3.6 (3.4-5.0) g/dL Globulin 3.4 (2.6-4.0) g/dL Albumin/Globulin Ratio 1.1 (0.9-1.6) TSH 3rd Generation (0.36-3.74) uIU/mL 08/03/19 Range/Units 20:00 WBC (4.0-11.0) K/uL RBC (4.50-5.90) M/uL Hgb (13.0-17.0) g/dL Hct (38.0-50.0) % MCV (80.0-98.0) fL MCH (27.0-32.0) pg MCHC (31.0-37.0) g/dL RDW Std Deviation (28.0-62.0) fl RDW Coeff of Joy (11.0-15.0) % Plt Count (150-400) K/uL MPV (7.40-12.00) fL Neut % (Auto) (48.0-80.0) % Lymph % (Auto) (16.0-40.0) % [place] % (Auto) (0.0-15.0) % Eos % (Auto) (0.0-7.0) % Baso % (Auto) (0.0-1.5) % Neut # (Auto) (1.4-5.7) K/uL Lymph # (Auto) (0.6-2.4) K/uL [place] # (Auto) (0.0-0.8) K/uL Eos # (Auto) (0.0-0.7) K/uL Baso # (Auto) (0.0-0.1) K/uL Nucleated RBC % /100WBC Nucleated RBCs # K/uL Sodium (136-148) mmol/L Potassium (3.5-5.1) mmol/L Chloride (98-107) mmol/L Carbon Dioxide (21.0-32.0) mmol/L BUN (7.0-18.0) mg/dL Creatinine (0.8-1.3) mg/dL Est Cr Clr Drug Dosing Estimated GFR (MDRD) ml/min Glucose (74-106) mg/dL Calcium (8.5-10.1) mg/dL Phosphorus 3.3 (2.6-4.7) mg/dL Magnesium 2.0 (1.8-2.4) mg/dL Total Bilirubin (0.2-1.0) mg/dL AST (15-37) IU/L ALT (14-63) IU/L Alkaline Phosphatase (46-116) U/L Troponin I (0.000-0.056) ng/mL B-Natriuretic Peptide (<100) PG/ML Total Protein (6.4-8.2) g/dL Albumin (3.4-5.0) g/dL Globulin (2.6-4.0) g/dL Albumin/Globulin Ratio (0.9-1.6) TSH 3rd Generation 1.12 (0.36-3.74) uIU/mL Meds: Medications Generic Name Dose Route Start Last Admin Trade Name Freq PRN Reason Stop Dose Admin Sodium Chloride 10 ml 08/03/19 20:22 Saline Flush FLUSH ASDIRECTED PRN Keep Vein Open Sodium Chloride 2.5 ml 08/03/19 20:22 Saline Flush FLUSH ASDIRECTED PRN Keep Vein Open - Radiology Interpretation Free Text/Narrative:: Still has occasional PACs. No evidence or suggestion here of atrial fibrillation. No clear indication for anticoagulation. In sinus rhythm the entire time is been here. Patient will call his primary care doctor tomorrow to discuss his presentation tonight and to consider alternative opinions and plans. 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 Departure - Departure Time of Disposition: 21:38 Disposition: Home, Self-Care 01 Condition: Good Clinical Impression: Palpitations Instructions: Palpitations Referrals: Ochoa Newberry MD [Primary Care Provider] - Forms: ED Department Discharge Additional Instructions: Follow-up with your primary care provider tomorrow or first available appointment. Also call your cream separator operator. You can tell your providers that you had a negative troponin, normal sodium, normal potassium, normal magnesium, normal phosphorus. You can also tell them that your EKG showed a single PAC on the strip and there were no other signs of cardiac arrhythmia. The following information is given to patients seen in the emergency department who are being discharged to home. This information is to outline your options for follow-up care. We provide all patients seen in our emergency department with a follow-up referral. The need for follow-up, as well as the timing and circumstances, are variable depending upon the specifics of your emergency department visit. If you don't have a primary care physician on staff, we will provide you with a referral. We always advise you to contact your personal physician following an emergency department visit to inform them of the circumstance of the visit and for follow-up with them and/or the need for any referrals to a consulting specialist. The emergency department will also refer you to a specialist when appropriate. This referral assures that you have the opportunity for follow-up care with a specialist. All of these measure are taken in an effort to provide you with optimal care, which includes your follow-up. Under all circumstances we always encourage you to contact your private physician who remains a resource for coordinating your care. When calling for follow-up care, please make the office aware that this follow-up is from your recent emergency room visit. If for any reason you are refused follow-up, please contact the [facility] Emergency Department at and asked to speak to the emergency department charge nurse. Sepsis Event Note - Evaluation Sepsis Screening Result: No Definite Risk - Focused Exam Vital Signs: Vital Signs Temp Pulse Resp BP Pulse Ox 08/03/19 19:55 36.4 C 102 H 18 130/90 93 L Date Exam was Performed: 08/03/19 Time Exam was Performed: 21:37 - My Orders Last 24 Hours: My Active Orders 08/03/19 20:22 Sodium Chloride 0.9% [Saline Flush] 10 ml FLUSH ASDIRECTED PRN Sodium Chloride 0.9% [Saline Flush] 2.5 ml FLUSH ASDIRECTED PRN Saline Lock Insert [OM.PC] Stat 08/03/19 20:26 EKG Documentation Completion [RC] STAT - Assessment/Plan Last 24 Hours: My Active Orders 08/03/19 20:22 Sodium Chloride 0.9% [Saline Flush] 10 ml FLUSH ASDIRECTED PRN Sodium Chloride 0.9% [Saline Flush] 2.5 ml FLUSH ASDIRECTED PRN Saline Lock Insert [OM.PC] Stat 08/03/19 20:26 EKG Documentation Completion [RC] STAT
[2019-08-03 20:45] LABS: BLOOD UREA NITROGEN,BUN 14 mg/dL (7.0-18.0); CARBON DIOXIDE,CO2 24.9 mmol/L (21.0-32.0); CHLORIDE,CL 106 mmol/L (98-107); GLUCOSE RANDOM 98 mg/dL (74-106); POTASSIUM,K 3.9 mmol/L (3.5-5.1); SODIUM,NA 142 mmol/L (136-148)
[2019-08-03 21:48] VITALS: BP 121/90; PULSE 77
== END 2019-08-03 21:45 | disposition home or self-care (01) ==
LOC: MW.ED 19:52
DX: R00.2 Palpitations (principal); I48.91 Unspecified atrial fibrillation; E78.00 Pure hypercholesterolemia, unspecified; J45.909 Unspecified asthma, uncomplicated; K21.9 Gastro-esophageal reflux disease without esophagitis; Z79.899 Other long term (current) drug therapy
CPT/HCPCS: 36415; 80053; 83735; 83880; 84100; 84443; 84484; 85025; 93005; 99285-25

== ENCOUNTER 2020-02-25 06:34 | Day surgery (SDC) | payer BC ==
[~2020-02-25 06:34] MED LIST: Lactated Ringers 1,000 ML IV SCH; cefOXitin 2 GM in Premix Bag 1 BAG IV ONE
[2020-02-25] MEDS ORDERED: Propofol 200 MG/20 ML SDV ONE (07:12)
[2020-02-25] MEDS ORDERED: Midazolam 1 MG/ML 2 ML SDV ONE (07:12)
--- NOTE | 2020-02-25 08:02 | PCM.PREANE ---
Preanesthetic Assessment - Anesthesia/Transfusion/Family Hx Anesthesia History: Prior Anesthesia Without Reaction Family History of Anesthesia Reaction: No Transfusion History: No Prior Transfusion(s) - Review of Systems General: No Symptoms Pulmonary: No Symptoms Cardiovascular: No Symptoms Gastrointestinal: No Symptoms Neurological: No Symptoms Other: Reports: None - Physical Assessment Vital Signs: Last Vital Signs Temp 97.2 F 02/25/20 07:54 Pulse 66 02/25/20 07:54 Resp 14 02/25/20 07:54 BP 152/95 H 02/25/20 07:54 Pulse Ox 97 02/25/20 07:54 Height: 5 ft 10 in Weight: 77.111 kg ASA Class: 2 Mental Status: Alert & Oriented x3 Airway Class: Mallampati = 1 Dentition: Reports: Normal Dentition ROM/Head Extension: Full Lungs: Clear to Auscultation, Normal Respiratory Effort Cardiovascular: Regular Rate, Regular Rhythm - Lab Values: Laboratory Last Values SARS-CoV-2 RNA (SOHA) NEGATIVE (NEGATIVE) 02/25/20 06:35 - Allergies Allergies/Adverse Reactions: Allergies Allergy/AdvReac Type Severity Reaction Status Date / Time No Known Allergies Allergy Verified 02/25/20 07:12 - Blood Blood Available: No - Anesthesia Plan Pre-Op Medication Ordered: None - Acknowledgements Anesthesia Type Planned: General Anesthesia (tiva) Pt an Appropriate Candidate for the Planned Anesthesia: Yes Alternatives and Risks of Anesthesia Discussed w Pt/Guardian: Yes Pt/Guardian Understands and Agrees with Anesthesia Plan: Yes PreAnesthesia Questionnaire HEENT History: Reports: Impaired Vision Other HEENT History: glasses Cardiovascular History: Reports: Afib, High Cholesterol Other Cardiovascular History: states has history of atrial fib and in 2018 had a cardiac ablation Respiratory History: Reports: Asthma, Sleep Apnea Other Respiratory History: uses CPAP daily Gastrointestinal History: Reports: GERD, Hiatal Hernia, Jaundice Other Gastrointestinal History: Pancreatitis in mid Genitourinary History: Reports: Renal Calculus Musculoskeletal History: Reports: Arthritis Neurological History: Reports: None Psychiatric History: Reports: None Endocrine/Metabolic History: Reports: None Hematologic History: Reports: None Immunologic History: Reports: None Oncologic (Cancer) History: Reports: None Dermatologic History: Reports: None - Infectious Disease History Infectious Disease History: Reports: None - Past Surgical History Head Surgeries/Procedures: Reports: None Cardiovascular Surgical History: Reports: Cardiac Ablation GI Surgical History: Reports: Colonoscopy, Hernia Repair/Other Musculoskeletal Surgical History: Reports: Knee Replacement Other Musculoskeletal Surgeries/Procedures:: left knee surgery, left thumb and right index finger surgeries - SUBSTANCE USE Smoking Status *Q: Never Smoker - HOME MEDS Home Medications: Home Meds Calcium Carbonate/Vitamin D3 [Calcium 600 + Vit D 200] 1 each PO DAILY 09/04/17 [History] Glucosam/Chond/Collagen/Hyalur [Glucosamine Chondroitin] 2 tab PO DAILY 09/04/17 [History] Multivitamins [Tab-A-Alberto] 1 each PO DAILY 09/04/17 [History] Omeprazole 20 mg PO DAILY 09/04/17 [History] atorvaSTATin Calcium [Atorvastatin Calcium] 20 mg PO DAILY 09/04/17 [History] allopurinoL [Zyloprim] 300 mg PO DAILY #90 tablet 12/13/17 [Rx] Magnesium 2 tab PO DAILY 08/03/19 [History] Ascorbate Calcium [Vitamin C] 1 tab PO ASDIRECTED 02/21/20 [History] Aspirin [Aspirin EC] 81 mg PO DAILY 02/21/20 [History] Ubidecarenone [Co Q-10] 100 mg PO ASDIRECTED 02/21/20 [History] - CURRENT (IN HOUSE) MEDS Current Meds: Current Medications Lactated Ringer's (Ringers, Lactated) 1,000 mls @ 125 mls/hr IV ASDIRECTED [facility] Last Admin: 02/25/20 07:56 Dose: 125 mls/hr Documented by: Discontinued Medications Cefoxitin Sodium 2 gm/ Premix 50 mls @ 100 mls/hr IV ONETIME ONE Stop: 02/25/20 06:29 Midazolam HCl (Versed 1 Mg/Ml) Confirm Administered Dose 2 mg .ROUTE .STK-MED ONE Stop: 02/25/20 07:13 Propofol (Diprivan 20 Ml) Confirm Administered Dose 600 mg .ROUTE .STK-MED ONE Stop: 02/25/20 07:13
--- NOTE | 2020-02-25 08:37 | PCM.OPNOTE ---
- General Post-Op/Procedure Note Date of Surgery/Procedure: 02/25/20 Operative Procedure(s): Colonoscopy Pre Op Diagnosis: Desire for colorectal cancer screening Post-Op Diagnosis: Minimal sigmoid diverticulosis Anesthesia Technique: MAC (ASA II) Primary Surgeon: Gunner Brian Condition: Good Free Text/Narrative:: DICTATION [id number] CPT CODE 04783
[2020-02-25 08:42] VITALS: PULSE 68
--- NOTE | 2020-02-25 08:43 | PCM.POSTAN ---
POST ANESTHESIA ASSESSMENT - MENTAL STATUS Mental Status: Alert, Oriented - VITAL SIGNS Vital Signs: Last Vital Signs Temp 36.2 C 02/25/20 07:54 Pulse 68 02/25/20 08:40 Resp 14 02/25/20 08:40 BP 125/81 02/25/20 08:40 Pulse Ox 96 02/25/20 08:40 - RESPIRATORY Respiratory Status: Respiratory Rate WNL, Airway Patent, O2 Saturation Stable - CARDIOVASCULAR CV Status: Pulse Rate WNL, Blood Pressure Stable - GASTROINTESTINAL GI Status: No Symptoms - POST OP HYDRATION Hydration Status: Adequate & Stable
[2020-02-25] MEDS ORDERED: Lactated Ringers 1,000 ML IV SCH (08:45)
[2020-02-25 09:35] VITALS: BP 131/84
--- NOTE | 2020-02-25 10:15 | PCM48HPAN ---
Post Anesthesia Note - EVALUATION WITHIN 48HRS OF ANESTHETIC Vital Signs in Normal Range: Yes Patient Participated in Evaluation: Yes Respiratory Function Stable: Yes Airway Patent: Yes Cardiovascular Function Stable: Yes Hydration Status Stable: Yes Pain Control Satisfactory: Yes Nausea and Vomiting Control Satisfactory: Yes Mental Status Recovered: Yes Vital Signs: Last Vital Signs Temp 96.8 F L 02/25/20 08:47 Pulse 68 02/25/20 08:47 Resp 14 02/25/20 08:47 BP 131/84 02/25/20 08:47 Pulse Ox 96 02/25/20 08:47
--- NOTE | 2020-02-25 12:35 | OR ---
SURGEON: Gunner Brian M.D. DATE OF PROCEDURE: 02/25/2020 OPERATION PERFORMED: Colonoscopy. PRIMARY SURGEON: Gunner Brian MD ANESTHESIA: MAC. ASA CLASSIFICATION: II. PREOPERATIVE DIAGNOSIS: Desire for colorectal cancer screening. POSTOPERATIVE DIAGNOSIS: Mild sigmoid diverticulosis. DESCRIPTION OF PROCEDURE: The patient was taken to the endoscopy room and positioned on the endoscopy table in the left lateral decubitus position. Time-out was called for appropriate identification of the patient and procedure. Monitored anesthesia care was provided. The colonoscope was inserted into the rectum and advanced with minimal difficulty to the cecum where the colonoscope was retroflexed to visualize the ascending colon from below. The colonoscope was then straightened and slowly withdrawn. The cecum, ascending colon, hepatic flexure, transverse colon, splenic flexure, and descending colon were very well visualized. No tumors, polyps, diverticula, or angiodysplastic changes were noted anywhere in the lower gastrointestinal tract. Sigmoid colon demonstrated a few scattered diverticula. No stricture, spasm, or bleeding was noted. No polyps were encountered. The colonoscope was then withdrawn to the rectum and retroflexed to visualize the anal orifice from above. No tumors or polyps were encountered and there were minimal hemorrhoidal changes with no bleeding. The colonoscope was then straightened, the rectum aspirated, and the colonoscope removed. The patient tolerated the procedure well and was taken to recovery room in stable condition. FREEMAN / CYNDEE /[id number]
== END 2020-02-25 09:23 | disposition home or self-care (01) ==
LOC: MW.SDS 06:34
PROVIDERS: ATTEND Surgery
DX: Z12.11 Encounter for screening for malignant neoplasm of colon (principal); K57.30 Diverticulosis of large intestine without perforation or abscess without bleeding; K64.9 Unspecified hemorrhoids; Z01.812 Encounter for preprocedural laboratory examination; Z20.828 Contact with and (suspected) exposure to other viral communicable diseases; E78.00 Pure hypercholesterolemia, unspecified; J45.909 Unspecified asthma, uncomplicated; I25.84 Coronary atherosclerosis due to calcified coronary lesion; E78.5 Hyperlipidemia, unspecified; K58.9 Irritable bowel syndrome, unspecified; K21.9 Gastro-esophageal reflux disease without esophagitis; G47.33 Obstructive sleep apnea (adult) (pediatric); I48.0 Paroxysmal atrial fibrillation; Z79.899 Other long term (current) drug therapy; Z96.659 Presence of unspecified artificial knee joint; Z98.890 Other specified postprocedural states
CPT/HCPCS: 45378; 87635; J2250; J2704; J7120; 00812; U0002

== ENCOUNTER 2021-08-13 23:29 | Emergency (ER) | payer BC ==
[2021-08-14] MEDS: Aspirin 81 MG Tab.Chew PO ONE (00:08)
[2021-08-14 00:15] LABS: BLOOD UREA NITROGEN,BUN 18 mg/dL (7.0-18.0); CARBON DIOXIDE,CO2 28.1 mmol/L (21.0-32.0); CHLORIDE,CL 102 mmol/L (98-107); GLUCOSE RANDOM 97 mg/dL (74-106); SODIUM,NA 139 mmol/L (136-148)
[2021-08-14 03:39] VITALS: BP 135/87; PULSE 69
== END 2021-08-14 03:39 | disposition home or self-care (01) ==
LOC: MW.ED 23:29
DX: I20.9 Angina pectoris, unspecified (principal); I10 Essential (primary) hypertension; I48.91 Unspecified atrial fibrillation; E78.00 Pure hypercholesterolemia, unspecified; K21.9 Gastro-esophageal reflux disease without esophagitis; Z79.899 Other long term (current) drug therapy; Z79.82 Long term (current) use of aspirin; Z20.822 Contact with and (suspected) exposure to COVID-19
CPT/HCPCS: 36415; 71045; 80053; 84484; 85025; 85610; 87635; 93005; 99285; A9270; 93010; 99291; U0002